=== PATIENT | female | born 1990 | race Caucasian/White ===

== ENCOUNTER 2018-01-03 15:52 | Emergency (ER) | payer OTHER ==
[2018-01-03 16:42] VITALS: BP 107/66
--- NOTE | 2018-01-03 17:47 | ED ---
Throat Pain/Nasal Congestion - HPI Summary HPI Summary: pt presents to the for evaluation of her left ear discomfort. she also complains of decreased hearing. she denies any trauma, car accidents, n/v/ diarrhea. - History of Current Complaint Chief Complaint: UCEar Hx Obtained From: Patient Onset/Duration: Gradual Onset Severity: Mild Associated Signs And Symptoms: Positive: Negative - Epiglottits Risk Factors Epiglottis Risk Factors: Negative - Allergies/Home Medications Allergies/Adverse Reactions: Allergies Allergy/AdvReac Type Severity Reaction Status Date / Time ciprofloxacin [From Cipro] Allergy Severe "swelling" Verified 01/03/18 16:44 diazepam [From Valium] Allergy Severe throat Verified 01/03/18 16:44 swelling/hives metronidazole [From Flagyl] Allergy Intermediate Hives Verified 01/03/18 16:44 sulfamethoxazole Allergy Intermediate Hives Verified 01/03/18 16:44 [From Bactrim] trimethoprim [From Bactrim] Allergy Intermediate Hives Verified 01/03/18 16:44 Home Medications: Home Medications cloNIDine TAB* [Catapres 0.1 MG TAB*] 0.1 mg PO BEDTIME 01/03/18 [History Confirmed 01/03/18] diPHENhydraMINE PO* [Benadryl PO 25 MG TAB*] 25 mg PO BEDTIME 01/03/18 [History Confirmed 01/03/18] PMH/Surg Hx/FS Hx/Imm Hx Previously Healthy: Yes Endocrine/Hematology History: Denies: Hx Anticoagulant Therapy Cardiovascular History: Denies: Hx Aneurysm Respiratory History: Denies: Hx Asthma GI History: Denies: Hx Cirrhosis History: Denies: Hx Acute Renal Failure Musculoskeletal History: Denies: Hx Arthritis Neurological History: Denies: Hx CVA - Surgical History Surgery Procedure, Year, and Place: 3 c-sections Infectious Disease History: No Infectious Disease History: Denies: Traveled Outside the [place] in Last 30 Days - Social History Alcohol Use: Occasionally Substance Use Type: Reports: Marijuana Substance Use Comment - Amount & Last Used: occasional Smoking Status (MU): Light Every Day Tobacco Smoker Type: Cigarettes Amount Used/How Often: 1/2 ppd Review of Systems Constitutional: Negative Eyes: Negative Positive: Ear Ache, Other - decreased hearing Cardiovascular: Negative Respiratory: Negative Gastrointestinal: Negative Genitourinary: Negative Musculoskeletal: Negative Skin: Negative Neurological: Negative Psychological: Normal All Other Systems Reviewed And Are Negative: No Physical Exam Triage Information Reviewed: Yes Vital Signs On Initial Exam: Initial Vitals Temp Pulse Resp BP Pulse Ox 97.8 F 66 16 107/66 100 01/03/18 16:37 01/03/18 16:37 01/03/18 16:37 01/03/18 16:37 01/03/18 16:37 Vital Signs Reviewed: Yes Appearance: Positive: Well-Appearing, No Pain Distress, Well-Nourished Skin: Positive: Warm, Dry Head/Face: Positive: Normal Head/Face Inspection Eyes: Positive: Normal, EOMI, PALLAVI ENT: Positive: Normal ENT inspection, Hearing grossly normal, Pharynx normal, Other - slight decrease hearing on exam to left ear Neck: Positive: Supple, Nontender Respiratory/Lung Sounds: Positive: Clear to Auscultation, Breath Sounds Present Cardiovascular: Positive: Normal, RRR Abdomen Description: Positive: Nontender, Soft Bowel Sounds: Positive: Present Musculoskeletal: Positive: Normal, Strength/ROM Intact Neurological: Positive: Normal, Sensory/Motor Intact, CN Intact II-III Psychiatric: Positive: Normal, Affect/Mood Appropriate, Anxious AVPU Assessment: Alert Diagnostics - Vital Signs Vital Signs Temp Pulse Resp BP Pulse Ox 01/03/18 16:37 97.8 F 66 16 107/66 100 - Laboratory Lab Statement: Any lab studies that have been ordered have been reviewed, and results considered in the medical decision making process. EENT Course/Dx - Course Course Of Treatment: no evidence of infection. I discussed with pt the fact that she need her hearing tested. i will refer her to ent. pt comfortable with the plan. pt requested referal in the [place] area. - Differential Diagnoses Differential Diagnoses: Otitis Externa, Otitis Media, Perforated TM, Other - brain tumor, cerumen blockage - Diagnoses Provider Diagnoses: Otalgia, Decreased hearing of left ear Discharge - Sign-Out/Discharge Documenting (check all that apply): Patient Departure All imaging exams completed and their final reports reviewed: No Studies - Discharge Plan Condition: Stable Disposition: HOME Patient Education Materials: Earache (ED) Referrals: Nathaly Varghese [Primary Care Provider] - Elvin Montoya MD [Medical Doctor] - Additional Instructions: please follow up with ENT. you need an audiology test to check your hearing. return if worse or any new symptoms. Takek tylenol for pain. - Billing Disposition and Condition Condition: STABLE Disposition: Home
== END 2018-01-03 17:55 | disposition home or self-care (01) ==
LOC: UCCORT 15:52
DX: H92.02 Otalgia, left ear (principal); H91.92 Unspecified hearing loss, left ear; Z88.1 Allergy status to other antibiotic agents; Z88.8 Allergy status to other drugs, medicaments and biological substances; F17.210 Nicotine dependence, cigarettes, uncomplicated
CPT/HCPCS: 99201; G0463